=== PATIENT | male | born 1950 | race Asian ===

== ENCOUNTER 2018-10-02 07:15 | Day surgery (SDC) | payer OTHER ==
[2018-10-01 10:40] VITALS: BMI 21.9
[2018-10-02] MEDS ORDERED: MIDAZOLAM HCL 2 MG/2 ML SINGLE DOSE VIAL ONE (08:45)
[2018-10-02] MEDS ORDERED: LIDOCAINE HCL 1%, 10 MG/ML (20ML VIAL) ONE (08:53)
[2018-10-02] MEDS ORDERED: HEPARIN NA (PORCINE) 5,000 UNITS/ML 1ML VIAL ONE (08:53)
[2018-10-02] MEDS ORDERED: ceFAZolin SODIUM 1 GM VIAL ONE (09:25)
[2018-10-02] MEDS ORDERED: ceFAZolin SODIUM 1 GM VIAL IVPB ONE (09:27)
[2018-10-02] MEDS ORDERED: ONDANSETRON 4 MG/2 ML VIAL IVPUSH PRN (09:50)
--- NOTE | 2018-10-02 09:50 | OP ---
Operative Note - Note: Operative Date: 10/02/18 Pre-Operative Diagnosis: STenosis left avf Operation: venogram left avf Post-Operative Diagnosis: Same as Pre-op Surgeon: Salvador Freitas Anesthesia: Fractional Estimated Blood Loss (mls): 5 Operative Report Dictated: Yes
[2018-10-02] MEDS ORDERED: LIDOCAINE HCL 1%, 10 MG/ML (20ML VIAL) INF ONE (09:51)
--- NOTE | 2018-10-02 09:53 | HP ---
Admitting History and Physical - Admission Chief Complaint: prolonged bleeding after HD. 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: Other (encephalopathy) Cardiovascular: Yes: HTN, Hyperlipdemia Hepatobiliary: Yes: Cirrhosis (portal hypertension) Renal/: Yes: Renal Inusuff (St 5 kidney disease) Heme/Onc: Yes: Anemia, Hypercoaguable State Endocrine: Yes: Diabetes Mellitus - Smoking History Smoking history: Former smoker Have you smoked in the past 12 months: No Aproximately how many cigarettes per day: 0 If you are a former smoker, when did you quit?: 10 YRS AGO - Alcohol/Substance Use Hx Alcohol Use: No Home Medications - Allergies Allergies/Adverse Reactions: Allergies Allergy/AdvReac Type Severity Reaction Status Date / Time No Known Drug Allergies Allergy Verified 10/02/18 08:11 - Home Medications Home Medications: Ambulatory Orders Finasteride 5 mg PO DAILY 08/17/16 Furosemide [Lasix -] 80 mg PO BID 08/17/16 Gabapentin 100 mg PO HS 08/17/16 Gabapentin 300 mg PO BID 08/17/16 Lactulose [Constulose] 0 ml PO ASDIR 08/17/16 Oxycodone HCl 5 mg PO Q6H 08/17/16 Pantoprazole Sodium [Protonix] 40 mg PO DAILY 08/17/16 Rifaximin [Xifaxan] 550 mg PO ASDIR 08/17/16 Tamsulosin HCl 0.4 mg PO BID 08/17/16 Calcium Acetate [Phoslo -] 1,334 mg PO TIDCM #90 capsule 08/21/16 Norvasc - 2.5 mg PO DAILY 09/25/18 Insulin Degludec [Tresiba Flextouch U-100] 6 units ASDIR 10/01/18 Review of Systems - Review of Systems Constitutional: reports: No Symptoms Eyes: reports: No Symptoms HENT: reports: No Symptoms Neck: reports: No Symptoms Cardiovascular: reports: No Symptoms Respiratory: reports: No Symptoms Gastrointestinal: reports: No Symptoms Genitourinary: reports: No Symptoms Musculoskeletal: reports: No Symptoms Integumentary: reports: No Symptoms Neurological: reports: No Symptoms Endocrine: reports: No Symptoms Hematology/Lymphatic: reports: No Symptoms Psychiatric: reports: No Symptoms Physical Examination Vital Signs: Vital Signs Temperature 97.4 F L 10/02/18 07:53 Pulse Rate 70 10/02/18 07:53 Respiratory Rate 16 10/02/18 07:53 Blood Pressure 155/80 10/02/18 07:53 O2 Sat by Pulse Oximetry (%) 97 10/02/18 07:53 Constitutional: Yes: Well Nourished, No Distress, Calm Eyes: Yes: WNL, Conjunctiva Clear, EOM Intact HENT: Yes: WNL, Atraumatic, Normocephalic Neck: Yes: WNL, Supple, Trachea Midline Cardiovascular: Yes: WNL, Regular Rate and Rhythm Respiratory: Yes: WNL, Regular, CTA Bilaterally Gastrointestinal: Yes: WNL, Normal Bowel Sounds Musculoskeletal: Yes: WNL Extremities: Yes: WNL Edema: No Integumentary: Yes: WNL Neurological: Yes: WNL, Alert, Oriented ...Motor Strength: WNL Psychiatric: Yes: WNL Labs: CBC, BMP 10/02/18 07:25 Problem List - Problems (1) ESRD (end stage renal disease) Assessment/Plan: ESRD, STenosis left avf 1. For venogram today Code(s): N18.6 - END STAGE RENAL DISEASE
[2018-10-02] MEDS ORDERED: LACTATED RINGERS SOLUTION 1,000 ML IV SCH (10:00)
[2018-10-02 16:21] VITALS: BP 136/61; PULSE 68; TEMP 97.8
--- NOTE | 2018-10-18 10:34 | OP ---
DATE OF OPERATION: 10/02/2018 PREOPERATIVE DIAGNOSES: Prolonged bleeding and stenosis of left arteriovenous fistula. 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 PROCEDURE: Venogram, left arteriovenous fistula. SURGEON: Salvador Lozada DO ANESTHESIA: Fractional. BLOOD LOSS: 5 mL. The patient is a 68-year-old male that comes in with prolonged bleeding times in dialysis after the needles are taken out in the unit. He bleeds at home and it was decided that he would need a diagnostic venogram. The patient came in through ambulatory surgery. The patient was consented for the procedure, understanding all risks, benefits, and alternatives, and he was then taken to the operating room. Once in the operating room, he was laid on the operating table in a supine manner and the area of the left arm was prepped and draped in sterile surgical manner. We then injected 5 mL of lidocaine 1% over the proximal AV fistula, above the anastomosis. We then took a micropuncture needle and punctured the AV fistula. A micropuncture wire was inserted and a micropuncture sheath was inserted. We then went ahead and shot a venogram through the micropuncture sheath, seeing that the proximal AV fistula was patent. As you go in the mid upper arm, the fistula is closed there and there is a giant branch that goes back down to the antecubital space and then feeds the basilic vein, which goes all the way up into the central vein and into the SVC. There is an abhorrent pathway to his AV fistula; however, there is no stenosis, there are no occlusions, there is good flow in the AV fistula; just the fact that there is a discontinuity of the cephalic vein and the giant branch that then feeds over to the basilic vein. At this point, there was no intervention that is needed. Patient is having prolonged bleeding times due to the fact that he is also on Eliquis and just pressure needs to be held longer. At this point, we took out our micropuncture sheath. Pressure was held for 5 minutes over the area. After there was no more bleeding, the area was clean and dry and Dermabond was placed. The patient tolerated the procedure with no complications. The patient transferred to PACU in stable condition. SALVADOR LOZADA DO INKJET OPERATOR/[id number]
== END 2018-10-02 11:20 | disposition home or self-care (01) ==
LOC: JASU-SURG 07:15
PROVIDERS: ATTEND Surgery Vascular Surgery
PROC: B51WZZA Fluoroscopy of Dialysis Shunt/Fistula, Guidance (ICD-10-PCS; principal; 2018-10-02 09:00)
DX: T82.858A Stenosis of other vascular prosthetic devices, implants and grafts, initial encounter (principal); I12.0 Hypertensive chronic kidney disease with stage 5 chronic kidney disease or end stage renal disease; E11.22 Type 2 diabetes mellitus with diabetic chronic kidney disease; N18.6 End stage renal disease; Z99.2 Dependence on renal dialysis; Z79.4 Long term (current) use of insulin
CPT/HCPCS: 36415; 76000-TC-FY; 82962; 84132; 94760; J1644